=== PATIENT | female | born 1955 | race Caucasian/White ===

== ENCOUNTER → 2018-01-06 11:00 | Outpatient (CLI) | payer OTHER, SELFPAY ==
[2018-01-11 11:57] LABS: HPV Reflexed? NOT INDICATED
== END ==
PROVIDERS: Visit Provider Obstetrics & Gynecology
DX: Z12.4 Encounter for screening for malignant neoplasm of cervix (principal)
CPT/HCPCS: 88175; G0145

== ENCOUNTER → 2018-01-28 13:58 | Outpatient (CLI) | payer BC, SELFPAY ==
--- NOTE | 2018-01-28 13:59 | BI_ITS ---
MAMMOGRAPHY - BILATERAL SCREENING REASON FOR EXAM: Female, 62 years old. Routine annual screening examination. PERTINENT HISTORY: Mother with breast cancer. Aunt with breast cancer. TECHNIQUE: Digital bilateral breast alex (3D mammographic acquisition) in the CC and MLO projections. 2-D mediolateral oblique (MLO) and craniocaudad (CC) views of both breasts were obtained. CAD: Full Field Digital Mammography with Computer Added Detection was performed. COMPARISON: Comparison is made with prior examination dated April 09, 2015. FINDINGS: Breast Composition: There are scattered areas of fibroglandular density. There are no dominant masses or suspicious calcifications. No other significant abnormalities are identified. There has been no significant change since the prior study. BI/SCREENING MAMM (CAD), BILAT IMPRESSION: Stable bilateral screening mammogram. Yearly follow-up mammogram recommended. (A) ASSESSMENT CATEGORY: BIRADS Category 1: Negative. A letter regarding these results will be sent to the patient by the facility within 30 days. Approximately 10% of breast cancers are not detected by mammography. A normal mammogram should not delay biopsy of a clinically suspicious abnormality. [id number] Electronically Signed: Vinnie Alonzo MD at 13:46 EDT Tel [phone], Service support ,
== END ==
PROVIDERS: Family Provider Family Medicine; PCP Family Medicine; Visit Provider Obstetrics & Gynecology
DX: Z12.31 Encounter for screening mammogram for malignant neoplasm of breast (principal)
CPT/HCPCS: 77063; 77067

== ENCOUNTER → 2019-01-20 | Outpatient (CLI) | payer BC, SELFPAY ==
--- NOTE | 2019-01-20 17:48 | MRI_ITS ---
STUDY: MRI BRAIN WITHOUT CONTRAST REASON FOR EXAM: Female, 63 years old. Pressure behind the eyes and hearing loss in right ear TECHNIQUE: Standardized multiplanar fat and water weighted pulse sequences were obtained. COMPARISON: None. FINDINGS: Normal size of the ventricles and extra-axial spaces for the patient's age. Solitary tiny punctate white matter lesion in left frontal lobe and right occipital lobe without mass effect or restricted diffusion. Normal bilateral basal ganglia. Normal thalami. There is no extra-axial fluid accumulation. Normal flow voids within the major intracranial circulation suggesting patency by spin echo criteria. Normal sella turcica, pituitary gland, infundibular stalk, optic chiasm and hypothalamus. Normal tectal plate and pineal gland. Normal midbrain, dante and medulla. Normal cerebellum. Normal basal cisterns. Normal bilateral temporal bones. Normal bilateral internal auditory canals. No demonstrated orbital abnormality, within the constraints of a routine brain study. Minor mucosal thickening of the ethmoid sinuses. Normal calvarium and skull base. Normal visualized soft tissue structures. Normal visualized upper cervical spine. MRI/Brain without Contrast IMPRESSION: Tiny punctate white matter lesions in the left frontal and right occipital lobes likely due to small vessel ischemic changes in patient of this age. No significant white matter ischemia or acute infarct. Otherwise normal unenhanced MRI of the brain Electronically Signed: Homero Plascencia MD at 19:25 EDT , Service support ,
[2019-01-20 19:36] LABS: CREATININE FINGERSTICK 1.3 mg/dL (0.55-1.02)
== END | disposition home or self-care (01) ==
LOC: MRI 17:42
PROVIDERS: Family Provider Family Medicine; PCP Family Medicine; Referring Provider Otolaryngology; Visit Provider Otolaryngology
DX: R42 Dizziness and giddiness (principal); H91.90 Unspecified hearing loss, unspecified ear
CPT/HCPCS: 70551

== ENCOUNTER → 2019-04-14 | Outpatient (CLI) | payer BC, SELFPAY ==
[2019-04-21 11:28] LABS: HPV Reflexed? NOT INDICATED
== END | disposition home or self-care (01) ==
LOC: LABSPEC 10:38
PROVIDERS: Visit Provider Obstetrics & Gynecology
DX: Z12.4 Encounter for screening for malignant neoplasm of cervix (principal)
CPT/HCPCS: 88175; G0145

== ENCOUNTER → 2019-05-01 | Outpatient (CLI) | payer BC, SELFPAY ==
--- NOTE | 2019-05-01 07:37 | BI_ITS ---
MAMMOGRAPHY - BILATERAL SCREENING REASON FOR EXAM: Female, 64 years old. Routine annual screening examination. PERTINENT HISTORY: Mother with breast cancer. Aunt with breast cancer. TECHNIQUE: Digital bilateral breast abdirahman (3D mammographic acquisition) in the CC and MLO projections. 2-D mediolateral oblique (MLO) and craniocaudad (CC) views of both breasts were obtained. CAD: Full Field Digital Mammography with Computer Added Detection was performed. COMPARISON: Comparison is made with prior examination dated January 28, 2018 and August 17, 2013. FINDINGS: Breast Composition: The breasts are heterogeneously dense, which may obscure small masses. There are no dominant masses or suspicious calcifications. Stable small benign-appearing bilateral axillary lymph nodes. No other significant abnormalities are identified. There has been no significant change since the prior study. BI/SCREEN MAMM (CAD) W/ABDIRAHMAN BILAT IMPRESSION: Stable bilateral screening mammogram. Yearly follow-up mammogram recommended. (A) ASSESSMENT CATEGORY: BIRADS Category 2: Benign. A letter regarding these results will be sent to the patient by the facility within 30 days. Approximately 10% of breast cancers are not detected by mammography. A normal mammogram should not delay biopsy of a clinically suspicious abnormality. [id number] Electronically Signed: Vinnie Alonzo, at 9:39 EDT , Service support ,
== END | disposition home or self-care (01) ==
LOC: OPBI 07:34
PROVIDERS: Family Provider Family Medicine; PCP Family Medicine; Referring Provider Obstetrics & Gynecology; Visit Provider Obstetrics & Gynecology
DX: Z12.31 Encounter for screening mammogram for malignant neoplasm of breast (principal)
CPT/HCPCS: 77063; 77067

== ENCOUNTER → 2019-07-07 | Outpatient (CLI) | payer BC, SELFPAY ==
--- NOTE | 2019-07-13 15:51 | STRESSREP_ITS ---
Stress Test Report Date: 07/07/2019 Procedure: Exercise tolerance test Indications: Chest pain Consent: Per the patient Procedure: The patient exercised on a Jonathan protocol for 9 minutes achieving a peak heart rate of 148 bpm (94 % predicted maximal heart rate) with a peak blood pressure 168/84 mmHg and a peak MET capacity of approximately 10.1 mET's. The baseline ECG demonstrated normal sinus rhythm. The peak exercise ECG demonstrated sinus tachycardia with about [address] depression in the inferior and lateral leads. There is also some ST elevation noted in aVR. However patient also did have some degree of baseline artifact. [There were no cardiac dysrhythmias pretest, during exercise, or recovery]. The functional capacity was considered excellent for age. The patient had no complaint of chest discomfort during exercise or recovery. The examination was discontinued secondary to dyspnea. Impression: 1. Technically adequate (percent predicted maximal heart rate greater than 85%) exercise tolerance test 2. Stress test is negative for exercise-induced chest pain. 3. Stress test test[is positive] for exercise-induced EKG changes of ischemia. 4. Functional capacity is [excellent for age] This note was generated with This[employer]ation software. It may contain incorrect words, spelling, and punctuation that were not noted in checking the note before signing.
== END | disposition home or self-care (01) ==
LOC: CVS 11:11
PROVIDERS: Family Provider Internal Medicine; PCP Internal Medicine; Referring Provider Clinical Nurse Specialist; Visit Provider Clinical Nurse Specialist
DX: R07.9 Chest pain, unspecified (principal)
CPT/HCPCS: 93017

== ENCOUNTER → 2020-07-01 07:56 | Outpatient (CLI) | payer BC, SELFPAY ==
--- NOTE | 2020-07-01 07:58 | BI_ITS ---
MAMMOGRAPHY - BILATERAL SCREENING REASON FOR EXAM: Female, 65 years old. Routine annual screening examination. PERTINENT HISTORY: FM HX MOTHER 70, MAT AUNT 50, PT WAS TREATED FOR SURFACE FUNGAL INFECTION ON BREAST AND UNDERARM AREA IN FEBRUARY 2020 TECHNIQUE: Digital bilateral breast abdriahman (3D mammographic acquisition) in the CC and MLO projections. 2-D mediolateral oblique (MLO) and craniocaudad (CC) views of both breasts were obtained. CAD: Full Field Digital Mammography with Computer Added Detection was performed. COMPARISON: 05/01/2019 and 01/28/2018 FINDINGS: Breast Composition: There are scattered areas of fibroglandular density. There are no dominant masses or suspicious calcifications. No other significant abnormalities are identified. BI/SCREEN MAMM (CAD) W/ABDIRAHMAN BILAT IMPRESSION: Stable bilateral screening mammogram. Yearly follow-up mammogram recommended. (A) ASSESSMENT CATEGORY: BIRADS Category 2: Benign. A letter regarding these results will be sent to the patient by the facility within 30 days. Approximately 10% of breast cancers are not detected by mammography. A normal mammogram should not delay biopsy of a clinically suspicious abnormality. [id number] Electronically Signed: Radha Juarez, at 15:54 EDT Tel , Service support ,
== END ==
PROVIDERS: PCP Internal Medicine; Referring Provider Obstetrics & Gynecology; Visit Provider Obstetrics & Gynecology
DX: Z12.31 Encounter for screening mammogram for malignant neoplasm of breast (principal)
CPT/HCPCS: 77063; 77067

== ENCOUNTER 2020-08-30 19:10 | Emergency (ER) | payer BC, SELFPAY ==
[2020-08-30 19:11] VITALS: BP 188/110; PULSE 110; RESP 18; TEMP 35.9; O2SAT 99; BMI 28.9
[2020-08-30 19:24] VITALS: BP 188/99; PULSE 99; RESP 24; O2SAT 99
--- NOTE | 2020-08-30 19:33 | ED.DCSUM_ITS ---
- ER Visit Summary Date of Service: 08/30/20 Chief Complaint: Acute on chronic elevated blood pressure and left flank pain that is now resolved History of Present Illness: The patient is a 65 F. Prior stroke seen on the CAT scan. Hypertension and currently she is not on medications for, Lyme disease, hypothyroidism and prior kidney stones. Patient states that she came home from work she was feeling fine. Around 4 PM she developed some left flank pain and just was not feeling well. She also noted blood pressure was little higher. She had a bowel movements that her flank pain resolved. But then she had some shakes which is also since resolved she had nausea but did not vomit and that has now resolved. She denies any abdominal pain. She denies any dysuria. She denies any fever, cough or shortness of breath. Physical Examination: Older female no acute distress. Initial blood pressure is 188/110. Heart rate of 110. Pulse ox 9 9% on room air no signs hypoxia. Afebrile. H EENT exam unremarkable. Tubes are unreactive laser motions are intact. Neck nontender no lymphadenopathy. Lungs clear to auscultation bilaterally. Heart regular rhythm no murmur. Abdomen soft nontender normal bowel sounds no peritoneal signs. Patient is moving all 4 extremities. Calves are nontender without edema or cords. Neurologically she is awake alert with no focal motor deficits. Normal 5-5 motor strength both upper and lower extremities. Back nontender. No signs of trauma. Skin no rashes. Test Results: CBC normal. Chemistry was normal except for potassium 3.4. Normal gap and creatinine. UA unremarkable. She flank study without contrast showed no acute abnormality. There was a left renal stone but that was in the kidney and not causing any obstruction. The radiologist also noted a left lower lobe lung nodule 7 mm and should have long- term follow-up. Radiologist interpreted this film I reviewed it also. All lab results were discussed with the patient. Emergency Department Course and Treatment: Patient has acute on chronic hypertension. In the past she has had multiple reactions to multiple different classes of antihypertensives including beta blockers and DAVID inhibitors. She saw her food science technician and they chose not to treat her blood pressure due to her side effects. She also had flank pain today that is since resolved. We will check screening labs and urinalysis. We will watch her blood pressure throughout emergency department course. Treatment Plan: Repeat exams patient is doing well at 2200. She and I discussed blood pressure medication she has had reactions to multiple different blood pressure medications in the past. They have decided not to treat her at this time. She will follow up with her primary care physician. Disposition: Discharge Impression: Acute on chronic hypertension Acute left flank pain resolved This note was generated with Ezeecube dictation software. It may contain incorrect words, spelling, and punctuation that were not noted in review of the chart prior to signing ED Disposition - Plan for ED Patient: Disposition: Home or Assisted Living Instructions: ED Hypertension, To Be Confirmed Referrals: Olesya Davis MD [Primary Care Provider] - 3-5 Days Additional Instructions: All of your primary care physician and/or your food science technician to determine if they want to start you on blood pressure medications. Your blood count, electrolytes, kidney function and urinalysis were all unremarkable tonight.
[2020-08-30 19:54] LABS: Absolute Lymphocyte Count 1.57 X10^3/uL (0.83-4.51); Absolute Neutrophil Count 3.7 X10^3/uL (2.0-7.7); Basophil# 0.03 X10^3/uL; Basophil% 0.5 % (0-1); Eosinophil# 0.18 X10^3/uL; Eosinophils% 3.1 % (0-5); Hematocrit 39.2 % (37-47); Hemoglobin 13.1 g/dL (12.0-15.0); Lymphocyte # 1.57 X10^3/ul (4.0); Lymphocyte % 26.9 % (19-41); Mean Corp Hgb Conc 33.4 g/dL (32-36); Mean Corpuscular Hgb 28.8 pg (27.0-32.0); Mean Corpuscular Volume 86.2 fL (81-99); Mean Platelet Vol. 9.6 fl (6.2-12.0); Monocyte# 0.35 X10^3/uL; NRBC Flagged by Analyzer 0 % (0-5); Neutrophil % 63.3 % (47-70); Platelet Count 210 K/mm3 (150-450); RBC Distribution Width CV 12.5 % (11.6-14.6); RBC Distribution Width SD 39.4 fl (35.1-43.9); Red Blood Count 4.55 M/mm3 (4.2-5.4); White Blood Count 5.8 K/mm3 (4.4-11.0)
[2020-08-30 20:21] LABS: Mucous, Urine 0 SEEN /hpf (<or=2+); Red Blood Cells-Urine 0 SEEN /hpf (0-5); Squamous Epithelial Cells - UA 0 SEEN /hpf (5-10); White Blood Cells 0 SEEN /hpf (0-5)
[2020-08-30 20:28] LABS: Anion Gap 6 (5-15); BUN 15 mg/dL (7-18); BUN/Creat Ratio 12.8 RATIO (10-20); Calcium,Total 9.3 mg/dL (8.5-10.1); Chloride 105 mmol/L (98-107); Creatinine, Serum 1.17 mg/dL (0.55-1.02); EST Glomerular Filtration Rate 49 mL/min (>60); Est Glom Filt Rate - Afr Amer 60 mL/min (>60); Estimated Creatinine Clearance 40.18 ml/min; Glucose 139 mg/dL (74-106); Potassium 3.4 mmol/L (3.5-5.1); Sodium Level 140 mmol/L (136-145)
[2020-08-30 20:33] LABS: Color, Urine Yellow (Yellow); Glucose, Dipstick Normal (Normal); Ketone-Dipstick Negative (Negative); Leukocyte Esterase-Dipstick 25 /ul (Negative); Nitrite-Dipstick Negative (Negative); Occult Blood-Urine Negative /ul (Negative); Protein-Dipstick Negative (Negative); Urine Bilirubin Dipstick Negative (Negative); Urine Clarity Clear (Clear); Urine Urobilinogen Normal (Normal)
[2020-08-30 20:53] LABS: Bacteria 1+ /hpf (None Seen)
[2020-08-30 21:44] VITALS: BP 173/91; PULSE 94; RESP 19; O2SAT 96
[2020-08-30 21:55] VITALS: BP 173/91; PULSE 93; RESP 16; O2SAT 98
--- NOTE | 2020-08-30 22:07 | DCINST.ED_ITS ---
ED Disposition - Plan for ED Patient: Disposition: Home or Assisted Living Instructions: ED Hypertension, To Be Confirmed Referrals: Olesya Davis MD [Primary Care Provider] - 3-5 Days Additional Instructions: All of your primary care physician and/or your optical glass sawyer to determine if they want to start you on blood pressure medications. Your blood count, electrolytes, kidney function and urinalysis were all unremarkable tonight.
--- NOTE | 2020-08-30 22:15 | CT_ITS ---
HISTORY: LT FLANK PAIN/ELEV HTN ADDITIONAL HISTORY: None provided. EXAMINATION/TECHNIQUE: CT Abdomen And Pelvis W/O Contrast Injection Enteric contrast was not given. Number of images including paperwork: 459. A radiation dose optimization technique was used for this scan. COMPARISON: 09/07/2016 FINDINGS: Evaluation of the abdominopelvic organs is limited in the absence of contrast. LOWER THORAX: No consolidation or pleural effusion. 7 mm right lower lobe lung nodule. Small hiatal hernia. LIVER: No concerning focal lesion. GALLBLADDER: Cholecystectomy. BILE DUCTS: No significant biliary dilatation. SPLEEN: Unremarkable. PANCREAS: Unremarkable. ADRENAL GLANDS: Unremarkable. KIDNEYS/URETERS: 1-2 mm nonobstructing left lower pole renal calculus. BOWEL: No bowel obstruction. No significant bowel wall thickening. No localized inflammation. Colonic diverticulosis. APPENDIX: No evidence of appendicitis. FREE FLUID: No significant free fluid. FREE AIR: None. LYMPH NODES: No pathologic appearing adenopathy. PERITONEUM, RETROPERITONEUM AND MESENTERY: Otherwise unremarkable. VASCULATURE: Atherosclerotic calcification. ABDOMINAL WALL: Unremarkable. PELVIS: Unremarkable bladder. OSSEOUS AND SOFT TISSUE STRUCTURES: No acute skeletal findings. Degenerative changes. CT/Abdomen/Pelvis without Cont IMPRESSION: 1. No acute abdominopelvic abnormality. 2. Nonobstructing left renal calculus. 3. Colonic diverticulosis. 4. 7 mm right lower lobe lung nodule. Follow-up CT recommended at 6-12 months and at 18-24 months to assess stability per Fleischner Society recommendations. Individualized dose optimization techniques were used for this CT. at 2309 Reported and signed by: Andree Dorsey MD Electronically Signed: Andree Dorsey MD at 23:09 EST Tel , Service support ,
[2020-08-30 23:19] VITALS: BP 152/104; PULSE 91; RESP 14; O2SAT 97
== END 2020-08-30 23:28 | disposition home or self-care (01) ==
PROVIDERS: Emergency Provider Emergency Medicine; PCP Internal Medicine
DX: I10 Essential (primary) hypertension (principal)
CPT/HCPCS: 74176; 80048; 81001; 85025; 99284; A4216

== ENCOUNTER 2021-10-24 12:59 | Outpatient (CLI) | payer OTHER, SELFPAY ==
[2021-10-27 21:39] LABS: Cancer Antigen 125 20.3 U/mL (0.0-38.1); Carbohydrate Ag 19-9 2261 6 U/mL (0-35); Carcinoembryonic Antigen 0.8 ng/mL (0.0-4.7)
== END 2021-10-24 23:59 | disposition short-term general hospital (02) ==
LOC: WOBLAB 13:00
PROVIDERS: PCP Internal Medicine; Visit Provider Obstetrics & Gynecology
DX: N83.201 Unspecified ovarian cyst, right side (principal)
CPT/HCPCS: 36415; 82378; 86301; 86304

== ENCOUNTER 2021-12-11 12:13 | Inpatient (IN) | payer OTHER, MEDICARE, SELFPAY ==
--- NOTE | 2021-12-05 12:19 | EKG12_ITS ---
Test Reason : PRE OP Blood Pressure : / mmHG Vent. Rate : 076 BPM Atrial Rate : 076 BPM P-R Int : 146 ms QRS Dur : 086 ms QT Int : 408 ms P-R-T Axes : 064 057 051 degrees QTc Int : 459 ms Normal sinus rhythm Normal ECG Confirmed by MIGUEL ORELLANA, MULUGETA ([id number]), editorial manager ROYER FORTE ([id number]) on 12/08/2021 11:15:19 AM Referred By: Lilian Gabriel Confirmed By:MULUGETA RIVERA MD
[2021-12-09 13:14] LABS: Hematocrit 39.4 % (37-47); Hemoglobin 13.5 g/dL (12.0-15.0); Mean Corp Hgb Conc 34.3 g/dL (32-36); Mean Corpuscular Hgb 28.5 pg (27.0-32.0); Mean Corpuscular Volume 83.3 fL (81-99); Mean Platelet Vol. 9.3 fl (6.2-12.0); Platelet Count 230 K/mm3 (150-450); RBC Distribution Width SD 39.2 fl (35.1-43.9); Red Blood Count 4.73 M/mm3 (4.2-5.4); White Blood Count 6.1 K/mm3 (4.4-11.0)
[2021-12-09 13:26] LABS: International Normalized Ratio 1.1; Partial Thromboplast Time 30.6 Seconds (24.1-36.2); Prothrombin Time (Protime)PT. 13.4 SECONDS (11.7-14.9)
[2021-12-11] VITALS (13 sets, daily range): BP systolic 107–148; BP diastolic 60–85; PULSE 60–108; RESP 16–18; TEMP 36.6–37.4; O2SAT 97–100; BMI 25.5
--- NOTE | 2021-12-11 | FLU_PTH ---
PATIENT: ADRIENNE PUGH LOC: [facility] U#:[id number] AGE/SX: 66/F ROOM: ME310 RE12/11/[address]: Dr. Lilian Gabriel MD : 1955 BED: 1 DIS: 12/13/2021 SPEC #: [id number] RECD: 12/11/21 12:49 STATUS: SOUGifty REQ #: [id number] RED: 12/11/21 00:[address]: Lilian Moore DEPT: CYTOLOGY RECD BY: Kavon Galan ENTERED: 12/11/21 12:49 SP TYPE: Fluid OTHR DR: MD Dr. Olesya Garduno MD Tissues: Pelvis, NOS Procedures: Special Stain Group II Surgery Specimen Level IV Cytospin Fluid HEADER OPERATION: Not noted PRE-OP DIAGNOSIS: Postmenopausal TISSUE SUBMITTED: Pelvic fluid for cytology DIAGNOSIS CYTOLOGY Pelvic fluid for cytology (cytospin and cell block): Negative for malignant cells. AM:dez 12/12/2021 CYTOLOGY STUDY Slides are reviewed. CYTOLOGY GROSS Received is 20 ml of pink cloudy fluid labeled with the patient's name and and designated per the requisition as pelvic. Submitted for cytology preparation including cell block. / dez 12/11/2021 TC:5 CPT: 45448, 79760
[2021-12-11] MEDS: Lactated Ringers 1,000 ML 40 ML IV ×3 (06:12→11:15)
[2021-12-11] MEDS: Gabapentin 600 MG Tablet PO (06:13)
[2021-12-11] MEDS: Acetaminophen 500 MG Tablet 1000 MG PO ×2 (06:13→18:32)
--- NOTE | 2021-12-11 06:57 | PCM.HP.BLA ---
History and Physical Date of Admission: 12/11/21 Surgical History and Physical Date: 12/05/2021 Name: KIM PUGH Age: 66 Date of : 1955 Kim Pugh, a 66 year old female 4 0 0 0 4, presents for JOHN BSO on December 11, 2021 --for right complex adnexal mass and normal tumor markers. --US 10/24/21 showed UTERUS: 5.6 x 3.1 x 4 cm. ENDOMETRIAL ECHO: and is fluid filled containing a .9 x .8 x .8 cm soft tissue mass that contains no blood flow. RIGHT OVARY: Normal ovarian tissue is not seen. There is a 5.6 x 3 x 3.5 cm mainly cystic mass that contains multiple septations and small solid components. These areas contain posterior shadowing and no internal blood flow is seen. LEFT OVARY: 4.2 x 1.5 x 2.1 cm and is only seen abdominally. MEDICATIONS HISTORY: Current medications prescribed by our practice are: 1. Estrace 0.01% (0.1 mg/gram) vaginal cream, As Directed Apply pea sized amount externally and internally QHS x 2 weeks and then twice weekly thereafter - to resume post-op 2. triamcinolone acetonide 0.025 % topical cream, Apply to affected area twice daily x 2 weeks Patient is also takin. levothyroxine 50 mcg tablet 2. cyclobenzaprine 10 mg tablet, prn 3. felodipine ER 2.5 mg tablet,extended release 24 hr, daily 4. lorazepam 0.5 mg tablet, prn 5. felodipine ER 5 mg tablet,extended release 24 hr, One pill by mouth once a day ALLERGIES: NKA, Penicillins, Intolerance-unknown, Losartan, Intolerance-unknown, Lisinopril, Chronic cough, Fluocinonide and Skin irritation Infections - Chicken pox, Mumps and Measles Illnesses - Lyme Disease, HTN, TIA, Anxiety, muscle pain, hypothyroidism Accidents - no injuries of consequence Hospitalizations - see surgery severe random pain; Review of Systems: GENERAL - Denies fever, or chills SKIN - Denies skin changes EYES - wears eye glasses EARS - Denies difficulty hearing NOSE - Denies nasal congestion or bleeding MOUTH - Denies sore throat or difficulty swallowing NECK - Denies pain or swelling RESPIRATORY - Denies shortness of breath or wheezing CARDIOVASCULAR - Denies palpitations or chest pain GASTROINTESTINAL - Denies nausea, vomiting, diarrhea, constipation GENITOURINARY - Denies dysuria, frequency of urination, incontinence of urine MUSCULOSKELETAL - Denies joint or muscle pain NEUROLOGICAL - Denies localized numbness or weakness PSYCHIATRIC - Denies depression or anxiety ENDOCRINE - Denies heat or cold intolerance, weight loss or gain HEMATO-IMMUNOLOGIC - Denies excesive bleeding with cuts SOCIAL HISTORY: Alcohol Use - socially Smoking - denies use Diet - balanced Diet Lifestyle - Seat Belt Use - always Employer - [employer] Job Description - Research analytical data scientist Illicit Drug Use - denies use of street drugs Sexual Activity - Hours Worked - 45 Spouse-Sig Other Name - [employer] Spouse-Sig Other Occupation - retired Children Name(s) - ALCIRA ALLRED,YAMINI COSTELLO Control - Prior Tubal and postmenopausal FAMILY HISTORY: Family history of DAUGHTER and DM I. Mother: Breast cancer, DM II and Heart Disease. Father: Prostate cancer. MENSTRUAL HISTORY: LMP Known?- Postmenopausal, Prior Menses - 04/19/2003, LMP - 05/07/03, Age Onset Menarche - 11 PAST PREGNANCIES: Total Pregnancies - 4; Full Term Pregnancies - 4; Premature - 0; Abortions, Induced - 0; Abortions, Spontaneous - 0; Ectopics - 0; Multiple Births - 0; Living Children - 4 SURGICAL HISTORY: 1. 04/28/1982 ; - 2. 07/19/1985 ; - 3. 04/30/1988 ; - 4. 12/22/1990 ; - 5. TOE BIPOSY 1990 ; - 6. outpatient cyst removed from back 02/14 ; - 7. fatty tumor of abdomen, 09/13 ; - 8. cholecystectomy, 2010 ; - PHYSICAL EXAM BP- 140/82 Sitting, Right arm, regular cuff Weight- 147.45843 lbs Height- 63 inch BMI:[id number] CONSTITUTIONAL - NAD, well nourished, and well developed SKIN - No rash, lesions, or ulcers HEENT - normocephalic, atraumatic, sclerae anicteric LUNGS - normal respiratory rate and rhythm NEUROLOGICAL - normal gait, normal balance, normal motor PSYCHIATRIC - A and O to time, place, person, mood and affect Assessment & Plan Assessment/Plan (1) Ovarian cyst: QUALIFIERS: Laterality: right Qualified Code(s): N83.201 - Unspecified ovarian cyst, right side PLAN: Proceed with laparoscopic hysterectomy, BSO (2) Postmenopausal:
[2021-12-11] MEDS: Enoxaparin 40 MG/0.4 ML Syringe SC (07:15)
[2021-12-11] MEDS: Lubricating Jelly 60 GM Tube 30 GM (07:18)
--- NOTE | 2021-12-11 07:30 | HYST_PTH ---
PATIENT: ADRIENNE PUGH LOC: [facility] U#:[id number] AGE/SX: 66/F ROOM: PR310 RE12/11/[address]: Dr. Lilian Gabriel MD : 1955 BED: 1 DIS: 12/13/2021 SPEC #: [id number] RECD: 12/11/21 13:14 STATUS: CHAZ PHILLIPS #: [id number] RED: 12/11/21 07:[address]: Lilian Moore DEPT: SURGICAL PATHOLOGY RECD BY: Eva Varma ENTERED: 12/12/21 09:41 SP TYPE: HYSTERECT OTHR DR: MD Dr. Mari Garduno MD Dr. Liza D Talampas, MD Tissues: Uterus, NOS Procedures: Surgery Specimen Level V HEADER OPERATION: Laparoscopy abdominal hysterectomy converted to open PRE-OP DIAGNOSIS: Ovarian cyst, postmenopausal TISSUE SUBMITTED: Cervix, uterus, bilateral fallopian tubes, ovaries MICROSCOPIC DIAGNOSIS Uterus, bilateral fallopian tubes and ovaries, hysterectomy and bilateral salpingo-oophorectomy: Endometrium ? inactive endometrium with cystic changes. Endometrial polyp - benign endometrial polyp with cystic changes. Myometrium ? adenomyosis. Bilateral fallopian tubes - no pathologic diagnosis. 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 Smaller ovary ? serous cystadenoma. See comment. SJ:rg 12/16/2021 COMMENT Cervix is not identified in the specimen. MICROSCOPIC DESCRIPTION Slides are reviewed. GROSS DESCRIPTION Received in fixative is one container labeled with the patient's name and designated uterus. The specimen consists of a supracervical hysterectomy specimen measuring 4.5 x 3.5 x 2.5 cm and weighing 20.4 gm. The triangular endometrial cavity measures 2 x 2 cm. The endometrium measures 0.3 cm in thickness and contains a light rapp polyp measuring 1 x 1 x 1 cm. The myometrium immediately beneath the polyp is not indurated. Present free in the container is a cystic ovary measuring 5 x 4 x 3 cm. The external surface is smooth and glistening. The external surface is inked and the specimen serially sectioned to reveal the cyst to contain clear fluid. The cyst wall lining averages 0.1 cm in thickness. Focally, the cyst wall lining is somewhat granular in appearance. Two smaller cysts averaging 0.6 cm are present adjacent to the larger cyst. Attached on the outside of the cyst is a fallopian tube measuring 4 cm in length and 0.5 cm in average diameter. Attached to this is a fallopian tube measuring 4 cm in length and 0.4 cm in average diameter. Also, present free in the container is a portion of fallopian tube measuring 3 cm in length and 0.5 cm in average diameter. [employer] Window Clerk sections are submitted as follows: 1 - endometrial polyp, 2??anterior uterine wall, 3 - posterior uterine wall, 4-6 - larger cystic ovary with adjacent fallopian tube, 7??smaller ovary with adjacent fallopian tube, 8 - potion of fallopian tube free in container. / AM:dez 12/12/2021 More sections are submitted as follows: 9-11 - lower uterine segment with distal margin. / SJ:dez 12/15/2021 TC: CPT: 66167
[2021-12-11] MEDS: Cefotetan 2 GM in 0.9% NS 100 ML IV ×2 (07:36→13:10)
[2021-12-11] MEDS: Bupivacaine Mpf 0.5% 30 ML VIAL (08:00)
[2021-12-11 10:20] LABS: Cytology, Body Fluid / CSF SEE PATHOLOGY REPORT
--- NOTE | 2021-12-11 11:49 | PCM.OPRPT ---
Problems Associated Problem List Diagnoses (1) Intraoperative bladder injury: Report of Operation Date of Procedure: 12/11/21 Pre-Operative Diagnosis: Intraoperative bladder injury Post-Operative Diagnosis: Same Surgery/Procedure Performed:: Repair intraoperative bladder injury, cystoscopy with bilateral ureteral catheterization Surgeon: Mair Boyd Type of Anesthesia: General Specimen's removed: None Drains: Madden catheter and LAKESHA Description of Procedure: The patient is a 66-year-old female undergoing a laparoscopic-assisted vaginal hysterectomy and a rent was made in the dome of the bladder during dissection from the cervix and uterus. I was called in for evaluation. The case was converted to open. The bowel was packed using a Shirlene retractor. Dr. Lidia Gabriel proceeded to remove the right ovary from the cul-de-sac where it had been previously transected. Dissection around the cervix and vaginal flap continued and the uterus was removed. The cuff was closed. At this time attention was turned towards the bladder injury. The bladder was first evaluated with the cystoscope. Bilateral ureteral orifices were identified easily and intubated each with its own whistle-tip catheter. Both sides revealed easy placement of the catheters which were extended all the way to 24 cm and left in place. At this time the rent was identified in the dome of the bladder and was approximately 1.5 cm in length. There were no other other injuries identified. At this time the opening was grasped with Allis clamps and debrided on the edges. It was then closed in 3 layers first was the mucosal layer closed with 4-0 chromic in running closure. The second layer was closed with 3-0 Vicryl and the detrusor was brought together with a running suture. A third layer was an imbrication layer with 2-0 Vicryl. At this time the Madden catheter was filled with 150 cc of saline. The bladder was seen to distend and was watertight. At this time the case was turned over to Dr. Lidia Gabriel. The Madden catheter was left in place. There were no complications during this portion of the procedure. Complications None Admit VTE Documentation VTE Present on Admission: Yes VTE Mechan Device Prophylaxis: SCD's VTE Pharm Prophylaxis ordered?: Yes
--- NOTE | 2021-12-11 12:20 | OP.PCM_ITS ---
Problems Associated Problem List Diagnoses (1) Postmenopausal: (2) Ovarian cyst: Report of Operation Date of Procedure: 12/11/21 Pre-Operative Diagnosis: 1. Right adnexal mass 2. Postmenopausal status Post-Operative Diagnosis: 1. Right adnexal mass 2. Postmenopausal status 3. Urinary cystotomy Surgery/Procedure Performed:: 1. Total laparoscopy hysterectomy converted to FER 2. Bilateral salpingo-oophorectomy 3. Cystoscopy and urinary stent placement 4. Cystotomy repair Description of Surgical Findings:: Right ovarian enlargement with several small sero-cystic lesions. Tubals post partial salpingectomy, otherwise normal. Normal uterus and left ovary Surgeon: Lilian Moore applications packager: Essie Harmon Type of Anesthesia: General and Local Anesthesiologist: Guanako Lee Specimen's removed: 1. uterus and cervix 2. bilateral tubes and ovaries Estimated Blood Loss (mL): 350 ml Fluids Replaced: 2400 ml Description of Procedure: Indications: 65-year-old 4 para 4 postmenopausal woman with incidentally found to have a complex right adnexal mass during her diverticular work-up. The patient was otherwise asymptomatic. Tumor markers including CA-125, CEA and CA 19-9 were within normal limits. She was counseled given the morphology to have removal and opted to proceed with laparoscopic total hysterectomy, BSO. Procedural risks, benefits, indications and alternatives were reviewed patient opted for to proceed. Procedure: The patient was brought to the operating room and placed in the dorsal supine position. She was induced under general anesthesia and intubated. She was repositioned into dorsal lithotomy and her arms were tucked at the sides. An examination under anesthesia was performed. The abdomen and perineum were prepped and draped in sterile fashion. Patient was placed into high lithotomy, Madden catheter was placed and speculum placed vaginally. The cervix grasped the anterior cervical lip using a single-tooth tenaculum. The cervix was significantly stenosed and required dilation. The uterus sounded to 7 cm. The Matrix [employer]asuring uterine manipulator was placed and secured the patient was placed into low lithotomy and attention turned to the abdomen. An inferior umbilical incision was made using the scalpel and the Veress needle placed with successful hanging drop test and no aspirate. Abdominal entry pressures were low. The abdomen was insufflated to 15 mmHg. The Veress needle was removed and a 5 mm port was placed under laparoscopic guidance at the inferior umbilicus confirming entry into the abdominal cavity. A transverse abdominis plane block was performed under laparoscopic guidance in the right and left lower quadrants using half percent bupivacaine. The patient was placed into Trendelenburg. Left and right lower quadrant incisions were made using transillumination and 5 mm ports were also placed at the sites. The pelvis was inspected there was a complex right adnexal mass with enlargement of the right ovary and multiple serocystic lesions along the ovary. The patient had previously had bilateral partial salpingectomy. I proceeded with transection of the proximal left mesosalpinx to the level of the uterine cornua using the LigaSure. The left utero-ovarian ligament was clamped, electrocoagulated and transected using the LigaSure. LigaSure was used for all vessel sealing in this case.. The left round ligament was clamped, electrocoagulated and transected. The anterior broad ligament was opened bladder flap was created. The uterine vessels were skeletonized at the left. Attention was turned to the right. The right posterior broad ligament peritoneum was opened and the infundibulopelvic pelvic ligament isolated then serially clamped, sealed and cut. The rest of the posterior broad ligament was incised to the level of the uterine ovarian ligament which was subsequently electrocoagulated, sealed and cut. The right distal tube and ovary replaced into the posterior cul-de-sac. The anterior right broad ligament was opened and the bladder flap was completed. The uterine vessels at the right were skeletonized. The bladder flap was further developed and the cardinal ligaments were taken down. The uterine vessels were sealed and cut bilaterally. I proceeded with anterior colpotomy using the monopolar however cystotomy occurred. On further inspection it appeared the uterine manipulator had displaced intraoperatively and the cuff ring was malpositioned. At this time I called for the urologist assistance and to proceed with abdominal completion of the hysterectomy. The MENTAL MEASUREMENTS TEACHER closed the laparoscopic incisional sites. I scrubbed out discussed the case with the patient's and the need to proceed with cystotomy repair abdominal approach. A Pfannenstiel incision was made using a scalpel on the skin and the Bovie for the subcutaneous tissue and the fascia. The rectus muscles were bluntly at the midline and the peritoneum sharply entered with extension of the peritoneal incision. An Shemar retractor was placed initially however there was poor visualization due to bowel the cyst was removed. The urologist scrubbed at this time. The bowel was packed and Shirlene retractor placed with improved visualization. The uterus was grasped with Sugar clamps and the vagina was elevated and clamped using Zeppelin clamp and cut with removal of the uterus and cervix. The vaginal cuff was reapproximated with 0 Vicryl suture. 0 Vicryl suture was used for the rest of the procedure except as noted. There was bleeding however from the left pelvic sidewall peritoneum that was controlled using 0 Vicryl [id number] suture. The cystotomy was isolated with Allis clamp and the space of Retzius was dissected to further mobilize the bladder. At this time Dr. Boyd proceeded with cystotomy, bilateral ureteral stent placement and return to the abdomen to repair the bladder in 3 layers. The bladder was backfilled with no observable leakage. Attention was turned to the left adnexa and the left distal tube and fimbria and ovary were visualized with isolation of the left infundibulopelvic ligament. The ligament was clamped with a curved Sasha and left salpingo-oophorectomy performed. The pedicle was doubly suture-ligated with 0 Vicryl. There is good hemostasis at that site. Alfa was placed along the vaginal cuff. A Mahad-Nicole Nicole drain was placed with the tip in the posterior cul-de-sac and the drain secured at the skin. The peritoneum was reapproximated using 2-0 Vicryl. The rectus fascia was reapproximated using oh strata fix suture. The subcutaneous tissue was reapproximated using 2-0 Vicryl. The skin was closed using 4-0 Vicryl by the MENTAL MEASUREMENTS TEACHER under my supervision. Silver Mepilex was placed over the incision. OpSite was placed over the laparoscopic incisional sites. The ureteral stents were removed and the patient was placed into dorsal supine, awakened, extubated and transferred to the recovery room without other complication. Sponge correct x2. Admit VTE Documentation VTE Present on Admission: Yes VTE Mechan Device Prophylaxis: SCD's VTE Pharm Prophylaxis ordered?: Yes
--- NOTE | 2021-12-11 14:11 | SUR.PHASEI ---
DR SUSAN MOON VISITS PATIENT AT BEDSIDE
[2021-12-11] MEDS: Ondansetron ODT 4 MG Tablet PO (14:25)
[2021-12-11] MEDS: proMETHazine 25 MG/ML Syringe 12.5 MG IM (16:11)
[2021-12-11] MEDS: cycloBENZAPRine HCl 5 MG TABLET PO (20:35)
[2021-12-11] MEDS: Docusate Sodium 100 MG Capsule PO (20:35)
[2021-12-12] VITALS (7 sets, daily range): BP systolic 106–141; BP diastolic 52–61; PULSE 75–105; RESP 16; TEMP 36.7–37.1; O2SAT 95–100; BMI 25.5
[2021-12-12] MEDS: Acetaminophen 500 MG Tablet 1000 MG PO ×5 (00:11→23:57)
[2021-12-12] MEDS: Enoxaparin 40 MG/0.4 ML Syringe SC (05:24)
[2021-12-12] MEDS: cycloBENZAPRine HCl 5 MG TABLET PO ×2 (05:30→12:38)
[2021-12-12] MEDS: Levothyroxine 50 MCG Tablet PO (05:31)
[2021-12-12 06:54] LABS: Hematocrit 26.3 % (37-47); Hemoglobin 9.3 g/dL (12.0-15.0); Mean Corp Hgb Conc 35.4 g/dL (32-36); Mean Corpuscular Hgb 29.3 pg (27.0-32.0); Mean Platelet Vol. 10.3 fl (6.2-12.0); Platelet Count 214 K/mm3 (150-450); RBC Distribution Width CV 13.4 % (11.6-14.6); RBC Distribution Width SD 40.8 fl (35.1-43.9); Red Blood Count 3.17 M/mm3 (4.2-5.4); White Blood Count 14.5 K/mm3 (4.4-11.0)
[2021-12-12 07:08] LABS: Creatinine, Serum 1.11 mg/dL (0.55-1.02); EST Glomerular Filtration Rate 52 mL/min (>60); Est Glom Filt Rate - Afr Amer 63 mL/min (>60)
[2021-12-12 07:16] LABS: Bedside Glucose 128 mg/dL (74-106)
[2021-12-12] MEDS: LORazepam 0.5 MG Tablet PO (08:00)
--- NOTE | 2021-12-12 08:06 | DCINST_ITS ---
Discharge Instructions Diet Discharge Diet: No restrictions Activity Discharge Activity: Return to Normal Activity May resume sexual activity in: 6 weeks Lifting Restrictions: 10 lb Dressing / Incision Call your doctor if your incision/area has: Continuous Slow Oozing, Sudden Increased Bleeding, Increased Pain/ Swelling, Increased Redness, Foul Smelling Discharge and Swelling at the incision site Call your doctor if you observe: Fever of 101 or Higher, Inability to urinate, Inability to have a bowel movement, Shortness of breath, Chest pain, Calf dis comfort and Uncontrolled pain Remove Dressing in: 2 days Cleanse incision/area with: Soap & Water Follow Up Care Please Follow Up With: Lilian Moore MD When: 5-7 days Test Results: Test results from this visit will be discussed in further detail at your follow-up appointment, if applicable. Discharge Plan Admission Admit Date/Time: 12/11/21 12:13 Primary Reason for Your Visit: Hysterectomy, Removal of tubes and ovaries, Bladder repair Attending Provider: Lilian Moore Primary Care Provider: Olesya Davis Consulting Providers: Surinder Shearer ; Mari Boyd Discharge Orders/Prescriptions Prescriptions: New ferrous sulfate 325 mg (65 mg iron) tablet 325 mg PO BID Qty: 60 RF: 0 cephalexin 500 mg capsule 500 mg PO TID Qty: 15 RF: 0 Continued felodipine 5 mg tablet extended release 24 hr 5 mg PO DAILY RF: 0 lorazepam 0.5 mg tablet 0.5 mg PO DAILY PRN (Reason: Anxiety) RF: 0 cyclobenzaprine 5 mg tablet 5 mg PO TID PRN (Reason: Pain) RF: 0 albuterol sulfate 90 mcg/actuation HFA aerosol inhaler 2 puff inhalation Q6H PRN (Reason: ASTHMA) RF: 0 levothyroxine 50 MCG tablet 50 mcg PO DAILY RF: 0 cyanocobalamin (vitamin B-12) 1,000 MCG/ML solution 1,000 mcg IJ QMONTH RF: 0 loratadine 10 mg Tablet 10 mg PO DAILY PRN (Reason: ALLERGIES) RF: 0 Referrals / Follow Up: Olesya Davis MD [Primary Care Provider] - (Follow up as scheduled) Mari Boyd MD [STAFF PHYSICIAN] - In 1 Week (Office will call you to schedule the appointment.) Disposition Disposition (needs filled in before D/C Order can be placed): Home, Self Care
--- NOTE | 2021-12-12 08:21 | PN.URO_ITS ---
Subjective Subjective Patient is sitting up in bed resting. She reports feeling sore and having some bladder irritation. Otherwise no nausea, vomiting or issues overnight. Objective Data Objective Data Vital Signs: Vital Signs Temp Pulse Resp BP Pulse Ox 98.3 F 83 16 106/52 L 97 12/12/21 07:59 12/12/21 07:59 12/12/21 07:59 12/12/21 07:59 12/12/21 07:59 Oxygen Flow Rate (L/min) 2 Oxygen Delivery Method Room Air Weight: 65.4 kg Body Mass Index (BMI) 25.5 Intake & Output: Intake and Output for Last 24 Hours 12/10/21 12/11/21 12/12/21 23:59 23:59 23:59 Intake Total 3760.25 / 3760.25 732 / 732 Output Total 430 / 1200 1480 / 1480 Balance 3330.25 / 2560.25 -748 / -748 Lab / Micro Data Result Diagrams: 12/12/21 05:57 12/12/21 05:57 Labs: Laboratory Results - last 24 hr 12/11/21 06:01: POC Glucose 128 H 12/12/21 05:57: WBC 14.5 H, RBC 3.17 L, Hgb 9.3 L, Hct 26.3 L, MCV 83.0, MCH 29.3, MCHC 35.4, RDW Std Deviation 40.8, RDW Coeff of Shanthi 13.4, Plt Count 214, MPV 10.3 12/12/21 05:57: Creatinine 1.11 H, Estim Creat Clear Calc 41.80, Est GFR (MDRD) Af Amer 63, Est GFR (MDRD) Non-Af 52 L Physical Exam Const alert, oriented x3 and no apparent distress Chest Chest: symmetrical chest wall rise Resp normal respiratory effort, normal air movement, no retractions and no use of accessory muscles Cardio regular rate and regular rhythm GI soft to palpation GI Narrative: LAKESHA is draining serosanguineous fluid Narrative: Madden catheter is draining clear to pink-tinged urine Skin no rashes or lesions noted, no jaundice, no petechiae and no mottling Assessment & Plan Assessment/Plan (1) Intraoperative bladder injury: PLAN: Continue Madden catheter Okay for LAKESHA removal per CORPORATE QUALITY MANAGER She will have cystogram next week and I will remove the Madden catheter in the office afterward Add Pyridium for bladder spasms and irritation
--- NOTE | 2021-12-12 08:56 | PCM.PN.OB ---
Subjective Subjective Reports severe pain early this morning, she thinks it is gas pain. No flatus yet. Tolerates PO. Denies chest pain, shortness of breath, lightheadedness. Has not been out of bed yet. Objective Data Objective Data Vital Signs: Vital Signs Temp Pulse Resp BP Pulse Ox 98.3 F 83 16 106/52 L 97 12/12/21 07:59 12/12/21 07:59 12/12/21 07:59 12/12/21 07:59 12/12/21 07:59 Oxygen Flow Rate (L/min) 2 Oxygen Delivery Method Room Air Weight: 65.4 kg Body Mass Index (BMI) 25.5 Intake & Output: Intake and Output for Last 24 Hours 12/10/21 12/11/21 12/12/21 23:59 23:59 23:59 Intake Total 3760.25 / 3760.25 732 / 732 Output Total 430 / 1200 1480 / 1480 Balance 3330.25 / 2560.25 -748 / -748 Lab / Micro Data Result Diagrams: 12/12/21 05:57 12/12/21 05:57 Labs: Laboratory Results - last 24 hr 12/11/21 06:01: POC Glucose 128 H 12/12/21 05:57: WBC 14.5 H, RBC 3.17 L, Hgb 9.3 L, Hct 26.3 L, MCV 83.0, MCH 29.3, MCHC 35.4, RDW Std Deviation 40.8, RDW Coeff of Shanthi 13.4, Plt Count 214, MPV 10.3 12/12/21 05:57: Creatinine 1.11 H, Estim Creat Clear Calc 41.80, Est GFR (MDRD) Af Amer 63, Est GFR (MDRD) Non-Af 52 L Physical Exam Const alert, oriented x3 and no apparent distress Resp normal respiratory effort and normal air movement Resp Narrative: right lower lobe rhonchi Cardio regular rate, regular rhythm, S1 normal heart sound and S2 normal heart sound GI normal to inspection, nondistended, normoactive bowel sounds, soft to palpation, non-tender and non-distended GI Narrative: incisional dressing c/d/i , LAKESHA in situ with scant blood tinged drainage Manual OB Exam: other lochia scant Uterus Palpation: uterus fundus firm Extremity no calf tenderness and no pedal edema Assessment & Plan (1) Intraoperative bladder injury: PLAN: Indwelling catheter Keflex UTI ppx Catheter teaching LAKESHA Follow up per Dr. Boyd (2) Hx of hysterectomy: COMMENT: hysterectomy, BSO PLAN: Routine postop care Oxycodone prn Cr slightly elevated - avoid NSAIDs Ambulation encouraged Counseled on IS Lovenox for DVT ppx Will evaluate for d/c home later today (3) Ovarian cyst: QUALIFIERS: Laterality: right Qualified Code(s): N83.201 - Unspecified ovarian cyst, right side PLAN: f/u path
[2021-12-12] MEDS: Cephalexin 500 MG Capsule PO ×3 (08:57→20:49)
[2021-12-12] MEDS: Docusate Sodium 100 MG Capsule PO ×2 (08:57→20:49)
[2021-12-12] MEDS: oxyCODONE 5 MG Tablet PO ×3 (08:57→20:48)
--- NOTE | 2021-12-12 14:05 | CASEMGMT ---
ARIAS ERNST Assessment: Face to Face with pt for initial transition planning/care coordination assessment. RN SUJATA introduced self and role at [facility], pt voices understanding and consents to assessment. Pt is A/O x4 and answers all questions appropriately at this time. Pt sitting up in chair in no distress. Care providers, pharmacy, and demographics verified/updated. Admitting Dx: OLVIN, FRANCES PCP:Susan Specialists:Lidia Marin Pharmacy: [facility] Retail Insurance: [employer] Prescription Benefit: yes LW/HPOA: Pt denies having a LW/DPOA and denies need for info regarding AD. [facility]NO[facility]: [facility], ; [facility], dtr Living Arrangements: Pt lives with in a two story house with 4 steps to enter without a rail. Pt reports she is I in ADL's and denies concerns at home. Transportation: Pt drives self and denies concerns with transportation. DME/HHC/SNF: Pt denies having any DME, previous HHC or SNF stays. Pt states no concerns with going home at time of dc. Nursing educated her on the mchugh that she will be going home with. Pt states no further concerns/needs. CM to follow. Advised pt to ask CM if any further question/concerns/needs arise, voices understanding. Pt Goal: Home Plan: Home
[2021-12-13 02:58] VITALS: BP 114/70; PULSE 85; RESP 18; TEMP 36.9; O2SAT 92
[2021-12-13] MEDS: oxyCODONE 5 MG Tablet PO (03:04)
[2021-12-13 06:38] LABS: Hematocrit 26.1 % (37-47); Mean Corp Hgb Conc 34.5 g/dL (32-36); Mean Corpuscular Hgb 29.1 pg (27.0-32.0); Mean Corpuscular Volume 84.5 fL (81-99); Mean Platelet Vol. 10.2 fl (6.2-12.0); Platelet Count 197 K/mm3 (150-450); RBC Distribution Width CV 13.8 % (11.6-14.6); RBC Distribution Width SD 42.3 fl (35.1-43.9); Red Blood Count 3.09 M/mm3 (4.2-5.4); White Blood Count 9.5 K/mm3 (4.4-11.0)
[2021-12-13] MEDS: Cephalexin 500 MG Capsule PO (06:53)
[2021-12-13] MEDS: Levothyroxine 50 MCG Tablet PO (06:54)
[2021-12-13] MEDS: Acetaminophen 500 MG Tablet 1000 MG PO (06:54)
[2021-12-13 06:58] LABS: Creatinine, Serum 1.02 mg/dL (0.55-1.02); EST Glomerular Filtration Rate 58 mL/min (>60); Est Glom Filt Rate - Afr Amer 70 mL/min (>60); Estimated Creatinine Clearance 45.49 ml/min
[2021-12-13] MEDS: Enoxaparin 40 MG/0.4 ML Syringe SC (07:01)
--- NOTE | 2021-12-13 07:43 | PCM.PN.OB ---
Subjective Subjective Reports painfulness yesterday afternoon. Much improved today, this morning pain 3/10. She has been out of bed, ambulating. Tolerates PO. No flatus yet. Objective Data Objective Data Vital Signs: Vital Signs Temp Pulse Resp BP Pulse Ox 98.4 F 85 18 114/70 92 12/13/21 02:58 12/13/21 02:58 12/13/21 02:58 12/13/21 02:58 12/13/21 02:58 Oxygen Flow Rate (L/min) 2 Oxygen Delivery Method Room Air Weight: 65.4 kg Body Mass Index (BMI) 25.5 Intake & Output: Intake and Output for Last 24 Hours 12/11/21 12/12/21 12/13/21 23:59 23:59 23:59 Intake Total 3760.25 / 3760.25 3682 / 3682 600 / 600 Output Total 430 / 1200 5295 / 5998 1156 / 1156 Balance 3330.25 / 2560.25 -1613 / -2316 -556 / -556 Lab / Micro Data Result Diagrams: 12/13/21 05:32 12/13/21 05:32 Labs: Laboratory Results - last 24 hr 12/11/21 10:00: Miscellaneous Cytology SEE PATHOLOGY REPORT 12/13/21 05:32: WBC 9.5, RBC 3.09 L, Hgb 9.0 L, Hct 26.1 L, MCV 84.5, MCH 29.1, MCHC 34.5, RDW Std Deviation 42.3, RDW Coeff of Shanthi 13.8, Plt Count 197, MPV 10.2 12/13/21 05:32: Creatinine 1.02, Estim Creat Clear Calc 45.49, Est GFR (MDRD) Af Amer 70, Est GFR (MDRD) Non-Af 58 L Physical Exam Const alert, oriented x3 and no apparent distress Resp normal respiratory effort, normal air movement and clear to auscultation bilaterally Cardio regular rate, regular rhythm, S1 normal heart sound and S2 normal heart sound GI normal to inspection, nondistended, normoactive bowel sounds, soft to palpation, non-tender and non-distended GI Narrative: incisions well approximated, mild meghna-incisional bruising Extremity no calf tenderness and no pedal edema Assessment & Plan (1) Hx of hysterectomy: COMMENT: hysterectomy, BSO PLAN: POD#2 s/p FER, BSO D/c home today (2) Intraoperative bladder injury: PLAN: LAKESHA output decreased drain removed (3) Postmenopausal: (4) Ovarian cyst: QUALIFIERS: Laterality: right Qualified Code(s): N83.201 - Unspecified ovarian cyst, right side
--- NOTE | 2021-12-13 07:48 | PCM.DC.SUM ---
Providers Date of Admission: 12/11/21 Primary Care Physician: Dr. Olesya Davis MD Reason For Visit: LAVH, BSO Diagnosis Discharge Diagnosis (1) Hx of hysterectomy: Status: Acute Code(s): Z90.710 - Acquired absence of both cervix and uterus (2) Intraoperative bladder injury: Status: Acute Code(s): N99.81 - Other intraoperative complications of genitourinary system (3) Postmenopausal: Status: Acute Code(s): Z78.0 - Asymptomatic menopausal state (4) Ovarian cyst: Status: Acute Code(s): N83.209 - Unspecified ovarian cyst, unspecified side Qualifiers: Laterality: right Qualified Code(s): N83.201 - Unspecified ovarian cyst, right side Medications at Discharge Home Medications cyanocobalamin (vitamin B-12) 1,000 mcg IJ QMONTH 08/30/20 levothyroxine 50 mcg PO DAILY 08/30/20 albuterol sulfate 90 mcg/actuation aerosol inhaler 2 puff INHALATION Q6H PRN 11/07/21 cyclobenzaprine 5 mg tablet 5 mg PO TID PRN 11/07/21 felodipine 5 mg tablet,extended release 24 hr 5 mg PO DAILY 11/07/21 lorazepam 0.5 mg tablet 0.5 mg PO DAILY PRN 11/07/21 loratadine 10 mg PO DAILY PRN 12/04/21 cephalexin 500 mg PO TID #15 cap 12/12/21 ferrous sulfate 325 mg PO BID #60 tab 12/12/21 oxycodone 5 mg PO Q6H PRN PRN 7 Days #15 tab 12/12/21 Hospital Course Operations hysterectomy FER (BSO with cystotomy repair) Procedures None Summary of Care Provided Hospital Course: 66yo presented for scheduled LAVH, BSO. Surgery was converted to FER, BSO due to cystotomy and bladder was repaired abdominally. She was out of bed, ambulating, tolerating a regular diet and discharged to home on post-op day # 2. Weight / BMI Weight Weight: 65.4 kg Body Mass Index (BMI) 25.5 ABG / Lab / Microbiology Data Result Diagrams: 12/13/21 05:32 12/13/21 05:32 Laboratory: Laboratory Results - last 24 hr 12/11/21 10:00: Miscellaneous Cytology SEE PATHOLOGY REPORT 12/13/21 05:32: WBC 9.5, RBC 3.09 L, Hgb 9.0 L, Hct 26.1 L, MCV 84.5, MCH 29.1, MCHC 34.5, RDW Std Deviation 42.3, RDW Coeff of Shanthi 13.8, Plt Count 197, MPV 10.2 12/13/21 05:32: Creatinine 1.02, Estim Creat Clear Calc 45.49, Est GFR (MDRD) Af Amer 70, Est GFR (MDRD) Non-Af 58 L D/C Instructions Discharge Diet: No restrictions Discharge Activity: May Shower May resume sexual activity in: 6 weeks Lifting Restricted to (Lbs): 10 Call your doctor if your incision/area has: Continuous Slow Oozing, Sudden Increased Bleeding, Increased Pain/ Swelling, Increased Redness, Foul Smelling Discharge and Swelling at the incision site Call your doctor if you observe: Fever of 101 or Higher, Inability to urinate, Inability to have a bowel movement, Shortness of breath, Chest pain, Calf discomfort and Uncontrolled pain Suture Line Care: Avoid Pulling/Pushing Cleanse incision/area with: Soap & Water Catheter: Madden to leg bag Additional Dressing/Incision Instructions: You may place a gauze over the left lower abdominal incision. Please Follow Up With: Lilian Moore MD When: 5-7 days Meaningful Use Info Meaningful Use Diagnoses (Choose all that apply): None applicable Discharge Plan Admission Admit Date/Time: 12/11/21 13:09 Primary Reason for Your Visit: Hysterectomy, Removal of tubes and ovaries, Bladder repair Attending Provider: Lilian Moore Primary Care Provider: Olesya Davis Consulting Providers: Surinder Shearer ; Mari Boyd Instructions Patient Instructions: Emptying and Cleaning Your ..., Indwelling Urinary Catheter Dc, Discharge Instructions Caring ... Discharge Orders/Prescriptions Prescriptions: New ferrous sulfate 325 mg (65 mg iron) tablet 325 mg PO BID Qty: 60 RF: 0 cephalexin 500 mg capsule 500 mg PO TID Qty: 15 RF: 0 oxycodone 5 mg Tablet 5 mg PO Q6H PRN PRN (Reason: Pain Score 6-10) 7 Days Qty: 15 RF: 0 Continued felodipine 5 mg tablet extended release 24 hr 5 mg PO DAILY RF: 0 lorazepam 0.5 mg tablet 0.5 mg PO DAILY PRN (Reason: Anxiety) RF: 0 cyclobenzaprine 5 mg tablet 5 mg PO TID PRN (Reason: Pain) RF: 0 albuterol sulfate 90 mcg/actuation HFA aerosol inhaler 2 puff inhalation Q6H PRN (Reason: ASTHMA) RF: 0 levothyroxine 50 MCG tablet 50 mcg PO DAILY RF: 0 cyanocobalamin (vitamin B-12) 1,000 MCG/ML solution 1,000 mcg IJ QMONTH RF: 0 loratadine 10 mg Tablet 10 mg PO DAILY PRN (Reason: ALLERGIES) RF: 0 Referrals / Follow Up: Mari Boyd MD [STAFF PHYSICIAN] - In 1 Week (Office will call you to schedule the appointment.) Olesya Davis MD [Primary Care Provider] - (Follow up as scheduled) Disposition Disposition (needs filled in before D/C Order can be placed): Home, Self Care
[2021-12-13] MEDS: Docusate Sodium 100 MG Capsule PO (08:01)
[2021-12-13 08:45] VITALS: BP 140/69; PULSE 90; RESP 16; TEMP 37.3; O2SAT 98
--- NOTE | 2021-12-13 11:10 | PCM.PN.GU ---
Subjective Subjective Doing well. LAKESHA drain is out. Going home today. Objective Data Objective Data Vital Signs: Vital Signs Temp Pulse Resp BP Pulse Ox 99.1 F 90 16 140/69 H 98 12/13/21 08:45 12/13/21 08:45 12/13/21 08:45 12/13/21 08:45 12/13/21 08:45 Oxygen Flow Rate (L/min) 2 Oxygen Delivery Method Room Air Weight: 65.4 kg Body Mass Index (BMI) 25.5 Intake & Output: Intake and Output for Last 24 Hours 12/11/21 12/12/21 12/13/21 23:59 23:59 23:59 Intake Total 3760.25 / 3760.25 3682 / 3682 600 / 600 Output Total 430 / 1200 5295 / 5998 1156 / 1156 Balance 3330.25 / 2560.25 -1613 / -2316 -556 / -556 Lab / Micro Data Result Diagrams: 12/13/21 05:32 12/13/21 05:32 Labs: Laboratory Results - last 24 hr 12/11/21 10:00: Miscellaneous Cytology SEE PATHOLOGY REPORT 12/13/21 05:32: WBC 9.5, RBC 3.09 L, Hgb 9.0 L, Hct 26.1 L, MCV 84.5, MCH 29.1, MCHC 34.5, RDW Std Deviation 42.3, RDW Coeff of Shanthi 13.8, Plt Count 197, MPV 10.2 12/13/21 05:32: Creatinine 1.02, Estim Creat Clear Calc 45.49, Est GFR (MDRD) Af Amer 70, Est GFR (MDRD) Non-Af 58 L Physical Exam Const alert, oriented x3 and no apparent distress Assessment & Plan Assessment/Plan (1) Intraoperative bladder injury: PLAN: Follow-up in the office after cystogram is done next week Home with Madden catheter
--- NOTE | 2021-12-19 12:35 | CON.PCM_ITS ---
Assessment & Plan Assessment/Plan (1) Intraoperative bladder injury: (2) Hx of hysterectomy: PLAN: surgical debridement of injury edges, and repair of bladder injury. HPI Consult Data Date of Consult: 12/19/21 HPI Narrative HPI Narrative: ADRIENNE PUGH, is a 66 F who is under anesthesia for laparoscopic assisted hysterectomy. During the procedure, Dr.Holmes Gabriel identified an intraoperative bladder injury. She made the decision to open the abdomen and called me for assistance in repairing the injury. There was concern prior to the case that the bowel may have been inflamed or involved, but this was determined to not be the case. [facility] Medical History Alcohol use Anxiety Arthritis Asthma Asthma Cardiology follow-up encounter CVA (cerebral vascular accident) Depression Gastric reflux GERD (gastroesophageal reflux disease) Hemorrhoids History of diverticulitis History of echocardiogram History of edema History of hiatal hernia History of stress test Hypertension Injury of head and neck Intraoperative bladder injury Lyme disease Non-smoker Thyroid disease Wears glasses Home Medications cyanocobalamin (vitamin B-12) 1,000 mcg IJ QMONTH 08/30/20 [History Last Taken Unknown] levothyroxine 50 mcg PO DAILY 08/30/20 [History Last Taken Unknown] albuterol sulfate 90 mcg/actuation aerosol inhaler 2 puff INHALATION Q6H PRN 11/07/21 [History Last Taken Unknown] cyclobenzaprine 5 mg tablet 5 mg PO TID PRN 11/07/21 [History Last Taken Unknown] felodipine 5 mg tablet,extended release 24 hr 5 mg PO DAILY 11/07/21 [History Last Taken Unknown] lorazepam 0.5 mg tablet 0.5 mg PO DAILY PRN 11/07/21 [History Last Taken Unknown] loratadine 10 mg PO DAILY PRN 12/04/21 [History Last Taken Unknown] cephalexin 500 mg PO TID #15 cap 12/12/21 [Rx Last Taken Unknown] ferrous sulfate 325 mg PO BID #60 tab 12/12/21 [Rx Last Taken Unknown] oxycodone 5 mg PO Q6H PRN PRN 7 Days #15 tab 12/12/21 [Rx Last Taken Unknown] Allergy/AdvReac Type Severity Reaction Status Date / Time adhesive tape Allergy Intermediate blistered Verified 12/04/21 10:51 rash DAVID Inhibitors Allergy Unknown Verified 12/04/21 10:51 Penicillins [PCN] Allergy Unknown Verified 12/04/21 10:51 amlodipine AdvReac Leg cramps Verified 12/12/21 11:00 Family History Mother Breast cancer Diabetes Heart disease Hypertension High cholesterol Grandfather Colon cancer Father Cancer Prostate Hypertension High cholesterol Sister Cancer oral and neck cancer Surgical History History of biopsy History of History of cholecystectomy History of ureter stent Hx of excision of mass Hx of laparoscopy Hx of tubal ligation Social History Smoking Status: Never smoker alcohol intake: current alcohol intake frequency: a few times a month substance use type: does not use ROS Review of Systems ROS Unobtainable: due to endotracheal tube and other Details: patient is under anesthesia for surgical intervention Physical Exam Narrative: open abdominal incision with bladder visualized and 1.5cm rent identified. Lab / Micro Data Result Diagrams: 12/13/21 05:32 12/13/21 05:32
== END 2021-12-13 11:15 | disposition home or self-care (01) | DRG 742 ==
LOC: SDC 14:12 → MS3 14:12
PROVIDERS: Admitting Provider Obstetrics & Gynecology; PCP Internal Medicine; Referring Provider Obstetrics & Gynecology; Visit Provider Obstetrics & Gynecology
PROC: 0UT9FZZ Resection of Uterus, Via Natural or Artificial Opening With Percutaneous Endoscopic Assistance (ICD-10-PCS; principal; 2021-12-11 07:05)
DX: N83.201 Unspecified ovarian cyst, right side (principal); N99.71 Accidental puncture and laceration of a genitourinary system organ or structure during a genitourinary system procedure; E03.9 Hypothyroidism, unspecified; I10 Essential (primary) hypertension; F41.9 Anxiety disorder, unspecified; K21.9 Gastro-esophageal reflux disease without esophagitis; M19.90 Unspecified osteoarthritis, unspecified site; J45.909 Unspecified asthma, uncomplicated; Z53.31 Laparoscopic surgical procedure converted to open procedure; N32.89 Other specified disorders of bladder; Z78.0 Asymptomatic menopausal state; Z79.899 Other long term (current) drug therapy; Z79.890 Hormone replacement therapy; N88.2 Stricture and stenosis of cervix uteri; Y92.234 Operating room of hospital as the place of occurrence of the external cause; F32.A Depression, unspecified
CPT/HCPCS: 36415; 82565; 82962; 85027; 85610; 85730; 86850; 86900; 86901; 88108; 88305; 88307; 88313; 93005; 94762; 99251; J7120; C1758; G0463; J2405

== ENCOUNTER 2021-12-17 12:14 | Outpatient (CLI) | payer OTHER, SELFPAY ==
--- NOTE | 2021-12-17 12:20 | RAD_ITS ---
CLINICAL HISTORY: Female, 66 years old. Follow-up for bladder injury. PROCEDURE: Cystogram. FLUOROSCOPY TIME (if supplied): (38 seconds) minutes/seconds. 3 images were obtained. 200 mL of contrast installed into the bladder in a retrograde fashion through indwelling LO catheter. The radiologist installed the contrast into the bladder. Findings: The bladder was opacified. No evidence of bladder leak. RAD/Cystography min 3 Views IMPRESSION: No evidence of bladder leak. Electronically Signed: Vinnie Alonzo MD at 9:38 EDT ,
== END 2021-12-17 23:59 | disposition home or self-care (01) ==
LOC: RAD 12:15
PROVIDERS: PCP Internal Medicine; Referring Provider Urology; Visit Provider Urology
DX: S37.29XA Other injury of bladder, initial encounter (principal)
CPT/HCPCS: 51600; 74430; Q9965

== ENCOUNTER 2022-01-12 09:52 | Outpatient (CLI) | payer OTHER, SELFPAY ==
--- NOTE | 2022-01-12 09:55 | BI_ITS ---
MAMMOGRAPHY - BILATERAL SCREENING 3-D TOMOSYNTHESIS REASON FOR EXAM: Female, 66 years old. SCREENING PERTINENT HISTORY: No significant family history. TECHNIQUE: 2-D mammograms and 3-D Tomosynthesis of the breast (s) were performed. CAD was performed. COMPARISON: 07/01/2020 FINDINGS: The breast composition is heterogeneously dense that can obscure small breast masses. Scattered benign calcifications are seen. No dense spiculated masses or suspicious microcalcifications are identified. No architectural distortion is identified. There is no skin thickening or retraction. There has been no significant change since the prior study. BI/SCRN MAMM (CAD)W/ABDIRAHMAN BILAT IMPRESSION: No mammographic signs of malignancy. Routine yearly mammograms recommended. ASSESSMENT CATEGORY: BIRADS Category 1: Negative. A letter regarding these results will be sent to the patient by the facility within 30 days. FOLLOW UP RECOMMENDATION: Yearly follow up mammogram recommended. (A) Approximately 10% of breast cancers are not detected by mammography. A normal mammogram should not delay biopsy of a clinically suspicious abnormality. Electronically Signed: Johnson Graff MD at 15:07 EDT ,
== END 2022-01-12 23:59 | disposition home or self-care (01) ==
LOC: OPBI 09:53
PROVIDERS: PCP Internal Medicine; Visit Provider Internal Medicine
DX: Z12.31 Encounter for screening mammogram for malignant neoplasm of breast (principal)
CPT/HCPCS: 77063; 77067

== ENCOUNTER → 2023-02-17 | Outpatient (CLI) | payer OTHER, SELFPAY ==
--- NOTE | 2023-02-17 14:45 | BI_ITS ---
MAMMOGRAPHY - BILATERAL SCREENING REASON FOR EXAM: Female, 67 years old. Routine annual screening examination. PERTINENT HISTORY: Mother with breast cancer. Aunt with breast cancer. TECHNIQUE: Digital bilateral breast abdirahman (3D mammographic acquisition) in the CC and MLO projections. 2-D mediolateral oblique (MLO) and craniocaudad (CC) views of both breasts were obtained. CAD: Full Field Digital Mammography with Computer Added Detection was performed. COMPARISON: Mammogram from 01/12/2022, 07/01/2020. FINDINGS: Breast Composition: The breasts are heterogeneously dense, which may obscure small masses. There are no dominant masses or suspicious calcifications. No other significant abnormalities are identified. There has been no significant change since the prior study. BI/SCRN MAMM (CAD)W/ABDIRAHMAN BILAT IMPRESSION: Stable bilateral screening mammogram. Yearly follow-up mammogram recommended. (A) ASSESSMENT CATEGORY: BIRADS Category 1: Negative. A letter regarding these results will be sent to the patient by the facility within 30 days. Approximately 10% of breast cancers are not detected by mammography. A normal mammogram should not delay biopsy of a clinically suspicious abnormality. Electronically Signed: Mansoor Sandhu DO at 15:42 EDT ,
== END | disposition home or self-care (01) ==
LOC: OPBI 14:43
PROVIDERS: PCP Internal Medicine; Referring Provider Internal Medicine; Visit Provider Internal Medicine
DX: Z12.31 Encounter for screening mammogram for malignant neoplasm of breast (principal)
CPT/HCPCS: 77063; 77067

== ENCOUNTER → 2024-02-29 | Outpatient (CLI) | payer OTHER, SELFPAY ==
--- NOTE | 2024-02-29 07:38 | BI_ITS ---
MAMMOGRAPHY - BILATERAL SCREENING REASON FOR EXAM: Female, 68 years old. Routine annual screening examination. PERTINENT HISTORY: Mother with breast cancer. Aunt with breast cancer. TECHNIQUE: Digital bilateral breast abdirahman (3D mammographic acquisition) in the CC and MLO projections. 2-D mediolateral oblique (MLO) and craniocaudad (CC) views of both breasts were obtained. CAD: Full Field Digital Mammography with Computer Added Detection was performed. COMPARISON: Comparison is made with prior study February 17, 2023 and January 12, 2022. FINDINGS: Breast Composition: The breasts are heterogeneously dense, which may obscure small masses. There are no dominant masses or suspicious calcifications. Stable small benign-appearing bilateral axillary lymph nodes. No other significant abnormalities are identified. There has been no significant change since the prior study. BI/SCRN MAMM (CAD)W/ABDIRAHMAN BILAT IMPRESSION: Stable bilateral screening mammogram. Yearly follow-up mammogram recommended. (A) ASSESSMENT CATEGORY: BIRADS Category 2: Benign. A letter regarding these results will be sent to the patient by the facility within 30 days. Approximately 10% of breast cancers are not detected by mammography. A normal mammogram should not delay biopsy of a clinically suspicious abnormality. [id number] Electronically Signed: Vinnie Alonzo MD at 9:25 EDT ,
== END | disposition home or self-care (01) ==
LOC: OPBI 07:37
PROVIDERS: PCP Internal Medicine; Referring Provider Internal Medicine; Visit Provider Internal Medicine
DX: Z12.31 Encounter for screening mammogram for malignant neoplasm of breast (principal); Z80.3 Family history of malignant neoplasm of breast
CPT/HCPCS: 77063; 77067

== ENCOUNTER 2025-01-15 19:05 | Emergency (ER) | payer OTHER, SELFPAY ==
[2025-01-15 19:07] VITALS: BP 208/105; PULSE 105; RESP 18; TEMP 36.9; O2SAT 100; BMI 28.3
--- NOTE | 2025-01-15 19:15 | EX.ED.DYSGE1 ---
HPI History of Present Illness Chief Complaint: Abd Pain PFSH PFSH Medical History Alcohol use Anxiety Arthritis Asthma Asthma Cardiology follow-up encounter CVA (cerebral vascular accident) Depression Gastric reflux GERD (gastroesophageal reflux disease) Hemorrhoids History of diverticulitis History of echocardiogram History of edema History of hiatal hernia History of stress test Hypertension Injury of head and neck Intraoperative bladder injury Lyme disease Non-smoker Thyroid disease Wears glasses Home Medications ?Medication ?Instructions ?Recorded ?Last Taken ?Type cyanocobalamin (vitamin B-12) 1,000 mcg IJ QMONTH 08/30/20 Unknown History 1,000 mcg/mL injection solution levothyroxine 50 mcg tablet 50 mcg PO DAILY 08/30/20 Unknown History albuterol sulfate 90 mcg/actuation 2 puff inhalation Q6H PRN ASTHMA 11/07/21 Unknown History aerosol inhaler cyclobenzaprine 5 mg tablet 5 mg PO TID PRN Pain 11/07/21 Unknown History felodipine 5 mg tablet,extended 5 mg PO DAILY 11/07/21 Unknown History release 24 hr lorazepam 0.5 mg tablet 0.5 mg PO DAILY PRN Anxiety 11/07/21 Unknown History loratadine 10 mg tablet 10 mg PO DAILY PRN ALLERGIES 12/04/21 Unknown History cephalexin 500 mg capsule 500 mg PO TID #15 caps 12/12/21 Unknown Rx ferrous sulfate 325 mg (65 mg 325 mg PO BID #60 tabs 12/12/21 Unknown Rx iron) tablet oxycodone 5 mg tablet 5 mg PO Q6H PRN PRN Pain Score 12/12/21 Unknown Rx 6-10 7 days #15 tabs ciprofloxacin HCl 500 mg tablet 500 mg PO BID #14 TABLETS 01/15/25 Unknown Rx metronidazole 500 mg tablet 500 mg PO BID 7 days #14 tabs 01/15/25 Unknown Rx Allergy/AdvReac Type Severity Reaction Status Date / Time adhesive tape Allergy Intermediate blistered Verified 01/15/25 19:06 rash DAVID Inhibitors Allergy Unknown Verified 01/15/25 19:06 Penicillins (PCN) Allergy Unknown Verified 01/15/25 19:06 amlodipine AdvReac Leg cramps Verified 01/15/25 19:06 Family History Mother Breast cancer Diabetes Heart disease Hypertension High cholesterol Grandfather Colon cancer Father Cancer Prostate Hypertension High cholesterol Sister Cancer oral and neck cancer Surgical History History of biopsy History of History of cholecystectomy History of ureter stent Hx of excision of mass Hx of laparoscopy Hx of tubal ligation Social History Smoking Status: Never smoker alcohol intake: current alcohol intake frequency: a few times a month substance use type: does not use EXAM Physical Exam Const Vital Signs: 01/15/25 19:07 01/15/25 19:46 01/15/25 21:05 Temperature 98.5 F 98.5 F Temperature Source Oral Oral Pulse Rate 105 H 95 89 Respiratory Rate 18 14 18 Blood Pressure 208/105 H 174/74 H 172/83 H Blood Pressure Mean 139 107 112 Pulse Ox 100 98 98 Oxygen Delivery Method Room Air Room Air Room Air 01/15/25 22:12 Temperature 98.5 F Temperature Source Pulse Rate 86 Respiratory Rate 17 Blood Pressure 132/78 H Blood Pressure Mean 96 Pulse Ox 98 Oxygen Delivery Method MDM MDM MDM Narrative Medical decision making narrative: HISTORY OF PRESENT ILLNESS: Chief complaint: Abdominal pain 69-year-old female history of CVA, GERD, alcohol use, anxiety, hiatal hernia presents with abdominal pain. Notes she is concerned about diverticulitis. REVIEW OF SYSTEMS: Pertinent positives: Abdominal pain Pertinent negatives: Vomiting, fever PHYSICAL EXAM: Nursing triage notes reviewed, Vital signs reviewed Constitutional: please see mdm HENT: MMM Eyes: Pupils equal round and reactive to light, Extraocular muscles intact Neck: No stridor, no JVD, full neck ROM Lungs: Clear to auscultation, No wheezing or rales. No increased work of breathing, no conversational dyspnea, no accessory muscle use, no nasal flaring. No respiratory distress noted Heart: Regular rate and rhythm, No murmurs, No rubs and No gallops, 2+ distal pulses (radial, femoral, posterior tibial) in all extremities Abdomen: Soft, LLQ TTP but no rigidity, rebound or guarding, no obvious peritoneal signs, no palpable pulsatile abdominal masses, no auscultated abdominal bruit : No CVAT Extremities: No edema Neuro: No new focal neurological deficits, cranial nerves II through XII intact, 5/5 strength in all present extremities. Intact sensation to light touch in all present extremities, 2+ reflexes bilateral patella tendons. Skin: No rash or lesions noted MEDICAL DECISION MAKING: Chief Complaint: please see HPI External records reviewed: Reviewed prior CT scan from 2019 showed diverticulosis Factors affecting care: As per HPI Social determinants of health: Denies alcohol use History obtained from others: none Consults: none [facility] Narrative: Patient was initially hypertensive with a blood pressure of 208/105, tachycardic with a pulse of 105, afebrile. Exam with left lower quadrant TTP. I considered the following differential diagnosis: AAA, small bowel obstruction, abdominal perforation, appendicitis, pancreatitis, hepatobiliary pathology (acute cholecystitis), mesenteric ischemia, pathology (ie nephrolithiasis, pyelonephritis). Obtained a broad lab and imaging workup to further elucidate etiology of patient's complaints. Initially treated the patient with IV Toradol, IV Zofran. ALL IMAGES (IF OBTAINED) HAVE BEEN PERSONALLY REVIEWED AND INTERPRETED BY MYSELF. CT scan abdomen pelvis shows evidence of acute diverticulitis perforation or abscess Lactate is wnl indicating no end-organ hypoperfusion and/or hypoxia. CBC with no leukocytosis, no anemia or thrombocytopenia CMP without evidence of acute kidney injury, significant electrolyte abnormality, anion gap to suggest end organ hypo-perfusion, no evidence of metabolic acidosis with a normal bicarbonate, no evidence of hepatobiliary obstructive pathology. Urinalysis shows no evidence of urinary inflammation suggestive of UTI The synthesis of the patient's history, physical exam, labs images suggest acute diverticulitis. Will treat with Cipro Flagyl given penicillin allergy. Given patient's well appearance, improved vitals, none surgical abdominal exam, CT scan which showed no evidence of perforation or abscess patient is appropriate for outpatient therapy with oral antibiotics. Prescribe ciprofloxacin and Flagyl for 7 days. The patient and/or family, caregivers express understanding. The patient and/or family, caregivers agrees with the plan. Shared decision making: I will have a discussion with the patient and or visitors regarding risk/benefits of further testing or admission. They will be made aware of of the risk/benefits inherent in this decision they will be given the opportunity to voice understanding. Total critical care time today provided was at least 0 minutes. This excludes separately billable procedures. Critical care time (if documented) is secondary to the patient having high probability of clinically significant/life threatening deterioration in the patient's condition which required my urgent intervention. Impression: 1. Acute abdominal pain 2. History of diverticulosis 3. Acute diverticulitis Dispo: Discharge home This note was generated with [email or web address] dictation software. It may contain incorrect words, spelling, and punctuation that were not noted in review of the chart prior to signing. Lab Data Labs: Laboratory Results - last 24 hr 01/15/25 01/15/25 19:47 19:57 WBC 9.6 RBC 4.26 Hgb 12.5 Hct 35.4 L MCV 83.1 MCH 29.3 MCHC 35.3 RDW Std Deviation 38.3 RDW Coeff of Shanthi 12.8 Plt Count 215 MPV 9.8 Immature Gran % (Auto) 0.400 Neut % (Auto) 73.7 H Lymph % (Auto) 16.8 L Atkinson % (Auto) 7.2 Eos % (Auto) 1.7 Baso % (Auto) 0.2 Absolute Neuts (auto) 7.1 Absolute Lymphs (auto) 1.61 Nucleated RBC % 0 Sodium 140 Potassium 3.4 Chloride 105 Carbon Dioxide 23.2 Anion Gap 12 BUN 9 Creatinine 0.94 Estim Creat Clear Calc 54.68 Est GFR (MDRD) Non-Af 66 BUN/Creatinine Ratio 9.8 L Glucose 99 Lactic Acid < 1.0 Calcium 9.3 Total Bilirubin 0.39 AST 19 ALT 16 Alkaline Phosphatase 100 Total Protein 7.0 Albumin 4.2 Globulin 2.8 Albumin/Globulin Ratio 1.5 Urine Color Straw Urine Clarity Clear Urine pH 7.0 Ur Specific [place] 1.005 Urine Protein Negative Urine Glucose (UA) Normal Urine Ketones Negative Urine Occult Blood Negative Urine Nitrite Negative Urine Bilirubin Negative Urine Urobilinogen Normal Ur Leukocyte Esterase Negative Urine RBC 0 SEEN Urine WBC 0 SEEN Ur Squamous Epith Cells 0 SEEN Urine Bacteria 0 SEEN Urine Mucus 0 SEEN Radiography Diagnostic Testing: Clinical Impression(s) from Imaging Studies Abdomen/Pelvis CT 01/15/25 20:15 IMPRESSION: Sigmoid diverticulitis with some free fluid in the pelvis but no abscess or perforation. Small hiatal hernia. 8 mm noncalcified right lower lobe pulmonary nodule and follow-up CT of the chest is recommended. Reading Location: [id number] Discharge Plan Triage Chief Complaint: Abd Pain ED Provider: Rishi Magana Dx/Rx/DC Orders Instructions: ED Diverticulitis Prescriptions: New ciprofloxacin HCl 500 mg tablet 500 mg PO BID Qty: 14 0RF metronidazole 500 mg tablet 500 mg PO BID 7 Days Qty: 14 0RF No Action felodipine 5 mg tablet extended release 24 hr 5 mg PO DAILY lorazepam 0.5 mg tablet 0.5 mg PO DAILY PRN (Reason: Anxiety) cyclobenzaprine 5 mg tablet 5 mg PO TID PRN (Reason: Pain) albuterol sulfate 90 mcg/actuation HFA aerosol inhaler 2 puff inhalation Q6H PRN (Reason: ASTHMA) levothyroxine 50 MCG tablet 50 mcg PO DAILY cyanocobalamin (vitamin B-12) 1,000 MCG/ML solution 1,000 mcg IJ QMONTH loratadine 10 mg Tablet 10 mg PO DAILY PRN (Reason: ALLERGIES) ferrous sulfate 325 mg (65 mg iron) tablet 325 mg PO BID Qty: 60 0RF cephalexin 500 mg capsule 500 mg PO TID Qty: 15 0RF oxycodone 5 mg Tablet 5 mg PO Q6H PRN PRN (Reason: Pain Score 6-10) 7 Days Qty: 15 0RF Primary Care Provider: Olesya Davis Referrals: Olesya Davis MD [Primary Care Provider] - Activity Restrictions/Additional Instructions: Thank you for trusting us with your care today! Your labs and CT scan consistent with acute diverticulitis. Please take Tylenol (2 pills, 650 mg), ibuprofen (2 pills, 400 mg) every 6 hours as needed for pain and fever control. Please take antibiotics until course complete. Please return to the emergency department if your symptoms change or worsen. Please follow with your primary care physician for further outpatient evaluation and management. Print Language: Marshallese Disposition Disposition: Home, Self Care Discharge Date/Time: 01/15/25 22:15
[2025-01-15 19:46] VITALS: BP 174/74; PULSE 95; RESP 14; TEMP 36.9; O2SAT 98
[2025-01-15] MEDS: Ondansetron 4 MG/2 ML Vial IV (19:53)
[2025-01-15] MEDS: Ketorolac 15 MG/ML Vial IV (19:53)
[2025-01-15] MEDS: 0.9% Normal Saline (1000mL) 1,000 ML 999 ML IV (19:53)
--- NOTE | 2025-01-15 20:15 | CT_ITS ---
PROCEDURE: ABDOMEN/PELVIS W IV CONT ONLY 01/15/2025 REASON FOR EXAM: LLQ ABDOMINAL PAIN TECHNIQUE: Abdomen and pelvis CT with intravenous contrast. Coronal and Sagittal reconstruction series were provided. PATIENT PREPARATION: Per protocol ORAL CONTRAST TYPE: None. AMOUNT: mL One or more dose reduction techniques were used (e.g., Automated exposure control, adjustment of the mA and/or kV according to patient size, use of iterative reconstruction technique. FINDINGS: Lung bases: 8 mm noncalcified nodule in the right lower lobe of the lungs on image 14. Liver: Normal size. No mass. Gallbladder: Surgically absent. Spleen: Normal size. Pancreas: Normal size without evidence of mass surrounding inflammation or ductal dilation. Adrenals: Unremarkable. Kidneys: Normal renal sizes. No hydronephrosis. Bladder: Unremarkable. Reproductive Organs: Unremarkable. Bowel: Multiple diverticula throughout the sigmoid colon consistent with diverticulosis. Long segment of wall thickening and stranding of the surrounding fat of the distal sigmoid colon consistent with diverticulitis. No loculated fluid collection to suggest abscess. No pneumoperitoneum to suggest perforation. Small hiatal hernia. Appendix: Unremarkable. Lymph nodes: Unremarkable. Vasculature: The abdominal aorta and IVC are normal. Peritoneum / Retroperitoneum: Small amount of free fluid in the pelvis. Bones: Unremarkable. CT/Abdomen/Pelvis W IV Cont ONLY IMPRESSION: Sigmoid diverticulitis with some free fluid in the pelvis but no abscess or per foration. Small hiatal hernia. 8 mm noncalcified right lower lobe pulmonary nodule and follow-up CT of the [facility] is recommended. Reading Location: [id number]
[2025-01-15 20:20] LABS: Bacteria 0 SEEN /hpf (None Seen); Color, Urine Straw (Yellow); Glucose, Dipstick Normal (Normal); Ketone-Dipstick Negative (Negative); Leukocyte Esterase-Dipstick Negative /ul (Negative); Mucous, Urine 0 SEEN /hpf (<or=2+); Nitrite-Dipstick Negative (Negative); Occult Blood-Urine Negative /ul (Negative); Protein-Dipstick Negative (Negative); Red Blood Cells-Urine 0 SEEN /hpf (0-5); Specific Gravity, Urine 1.005 (1.002-1.030); Squamous Epithelial Cells - UA 0 SEEN /hpf (5-10); Urine Bilirubin Dipstick Negative (Negative); Urine Clarity Clear (Clear); Urine Urobilinogen Normal (Normal); White Blood Cells 0 SEEN /hpf (0-5)
[2025-01-15 20:23] LABS: Absolute Lymphocyte Count 1.61 X10^3/uL (0.83-4.51); Absolute Neutrophil Count 7.1 X10^3/uL (2.0-7.7); Basophil# 0.02 X10^3/uL; Basophil% 0.2 % (0-1); Eosinophil# 0.16 X10^3/uL; Eosinophils% 1.7 % (0-5); Hematocrit 35.4 % (37-47); Hemoglobin 12.5 g/dL (12.0-15.0); Lymphocyte # 1.61 X10^3/ul (0.83-4.51); Lymphocyte % 16.8 % (19-41); Mean Corp Hgb Conc 35.3 g/dL (32-36); Mean Corpuscular Hgb 29.3 pg (27.0-32.0); Mean Corpuscular Volume 83.1 fL (81-99); Mean Platelet Vol. 9.8 fl (6.2-12.0); Monocyte# 0.69 X10^3/uL; Monocyte% 7.2 % (0-10); NRBC Flagged by Analyzer 0 % (0-5); Neutrophil # 7.06 X10^3/uL (2.7-7.7); Neutrophil % 73.7 % (47-70); Platelet Count 215 K/mm3 (150-450); RBC Distribution Width CV 12.8 % (11.6-14.6); RBC Distribution Width SD 38.3 fl (35.1-43.9); Red Blood Count 4.26 M/mm3 (4.2-5.4); White Blood Count 9.6 K/mm3 (4.4-11.0)
[2025-01-15 20:54] LABS: ALB/GLOB Ratio 1.5 RATIO (0.9-2.4); AST(SGOT) 19 U/L (<=31); Alanine Aminotransfer ALT/SGPT 16 U/L (<=34); Albumin, Serum 4.2 g/dL (3.4-4.8); Alkaline Phosphatase 100 U/L (35-104); Anion Gap 12 (5-15); BUN 9 mg/dL (4-19); BUN/Creat Ratio 9.8 RATIO (10-20); Calcium,Total 9.3 mg/dL (7.6-11.0); Carbon Dioxide 23.2 mmol/L (21.0-32.0); Chloride 105 mmol/L (98-108); Creatinine, Serum 0.94 mg/dL (0.70-1.20); EST Glomerular Filtration Rate 66 (>60); Estimated Creatinine Clearance 54.68 ml/min (50-250); Globulin 2.8 g/dL (2.2-4.2); Glucose 99 mg/dL (70-99); Potassium 3.4 mmol/L (3.3-5.1); Sodium Level 140 mmol/L (133-145); Total Bilirubin 0.39 mg/dL (0.00-1.30)
[2025-01-15 20:58] LABS: Lactic Acid < 1.0 mmol/L (0.0-2.0)
[2025-01-15 21:05] VITALS: BP 172/83; PULSE 89; RESP 18; O2SAT 98
[2025-01-15] MEDS: Ciprofloxacin 500 MG Tablet PO (21:15)
[2025-01-15] MEDS: metroNIDAZOLE 500 MG Tablet PO (21:15)
[2025-01-15 22:12] VITALS: BP 132/78; PULSE 86; RESP 17; TEMP 36.9; O2SAT 98
== END 2025-01-15 22:15 | disposition home or self-care (01) ==
PROVIDERS: Emergency Provider Emergency Medicine; PCP Internal Medicine; Referring Provider Emergency Medicine; Visit Provider Emergency Medicine
DX: R10.9 Unspecified abdominal pain (principal); K57.92 Diverticulitis of intestine, part unspecified, without perforation or abscess without bleeding; Z86.73 Personal history of transient ischemic attack (TIA), and cerebral infarction without residual deficits; K21.9 Gastro-esophageal reflux disease without esophagitis; J45.909 Unspecified asthma, uncomplicated; I10 Essential (primary) hypertension
CPT/HCPCS: 74177; 80053; 81001; 83605; 85025; 99283; Q9967; J2405

== ENCOUNTER → 2025-03-22 | Outpatient (CLI) | payer OTHER, SELFPAY ==
--- NOTE | 2025-03-22 08:09 | BI_ITS ---
EXAM: SCRN MAMM (CAD)W/ABDIRAHMAN BILAT DATE: 03/22/2025 CLINICAL HISTORY: F, Age 69 y/o , SCREENING Mother with breast cancer. Aunt with breast cancer. TECHNIQUE: SCRN MAMM (CAD)W/ABDIRAHMAN BILAT COMPARISON: Prior exam(s) dated February 29, 2024.. FINDINGS: TISSUE DENSITY: The breasts are heterogeneously dense, which may obscure small masses. Bilateral Breast Mammographic Findings: No significant masses, calcifications or other abnormalities are identified. No suspicious masses, areas of developing architectural distortion, or suspicious calcifications. There has been no significant interval change. BI/SCRN MAMM (CAD)W/ABDIRAHMNA BILAT IMPRESSION: Stable examination. OVERALL FINAL ASSESSMENT BI-RADS 1: NEGATIVE. RECOMMEND ANNUAL MAMMOGRAPHIC SCREENING. RECOMMENDATION: Routine annual follow-up in 1 Year A letter with findings and recommendations will be mailed to the patient. Reading Location: [facility]
== END | disposition home or self-care (01) ==
LOC: OPBI 08:07
PROVIDERS: PCP Internal Medicine; Referring Provider Internal Medicine; Visit Provider Internal Medicine
DX: Z12.31 Encounter for screening mammogram for malignant neoplasm of breast (principal)
CPT/HCPCS: 77063; 77067